=== PATIENT | female | born 1955 | race Hispanic/Latino ===

== ENCOUNTER 2023-01-22 04:58 | Observation (INO) | payer MEDICARE, OTHER ==
[2023-01-17 11:34] LABS: BASOPHILS # (AUTO) 0.07 K/uL (0.00-0.20); BASOPHILS % (AUTO) 0.6 % (0.0-5.0); EOSINOPHILS # (AUTO) 0.57 K/uL (0.00-0.70); EOSINOPHILS % (AUTO) 5.1 % (0.0-8.0); IMMATURE GRANULOCYTE ABSOLUTE 0.06 K/uL (0-1); LYMPHOCYTES # (AUTO) 3.2 K/uL (1.0-4.8); LYMPHOCYTES % (AUTO) 28.5 % (21.0-51.0); MEAN CORPUSCULAR HEMOGLOBIN 31.7 pg (27.0-33.0); MEAN CORPUSCULAR HGB CONC 33.6 g/dL (32.0-36.0); MEAN CORPUSCULAR VOLUME 94.4 fL (79-99); MONOCYTES # (AUTO) 0.8 K/uL (0.1-1.0); NEUTROPHILS # (AUTO) 6.4 K/uL (1.8-7.7); NEUTROPHILS % (AUTO) 58.3 % (40.0-77.0); PLATELET COUNT (AUTO) 330 K/uL (130-400); RED BLOOD CELL COUNT(AUTO) 4.13 MIL/uL (4.00-5.50); RED CELL DISTRIBUTION WIDTH 12.7 % (11.0-15.5); WHITE BLOOD COUNT (AUTO) 11.1 K/uL (4.8-10.8)
[2023-01-17 11:44] LABS: CREATININE 0.9 mg/dL (0.5-1.5); POTASSIUM 3.5 mmol/L (3.5-5.1)
[2023-01-17 11:47] LABS: INR 0.97 (0.85-1.15); PROTHROMBIN TIME 11.3 SEC (9.6-11.6)
[2023-01-17 11:49] LABS: PARTIAL THROMBOPLASTIN TIME 29.9 SEC (26.3-35.5)
[2023-01-17 12:01] VITALS: BP 162/85; PULSE 74; RESP 22
[~2023-01-22] VITALS: Ht 157.5 cm; Wt 90.0 kg
[2023-01-22] VITALS (32 sets, daily range): BP systolic 108–163; BP diastolic 50–80; PULSE 58–73; RESP 10–20; O2SAT 94
[~2023-01-22 04:58] MED LIST: AMLO10TA4 PO; ATOR20TA65 PO; BACL10TA PO; BIMA2.5D4 OU; CYCL30DR OU; DICY-20 PO; FURO20TA4 PO; MECL-302 PO; METF-444 PO; OMEP20CA12 PO; TRAM50TA4 PO; ZOLP10TA2 PO
[2023-01-22] MEDS: 0.9%NACL 1000ML 1,000 ML IV ONE (06:38)
[2023-01-22] MEDS ORDERED: ROSU20TA73 PO (07:03)
[2023-01-22] MEDS ORDERED: PROPOFOL 10 MG/ML 20ML VIAL IV ONE (12:14)
[2023-01-22] MEDS ORDERED: FENTANYL CITRATE PF 50 MCG/1 ML 2ML VIAL ONE (12:15)
[2023-01-22] MEDS ORDERED: LIDOCAINE PF 100MG/5ML (2%) SYRINGE 5ML ONE (12:16)
[2023-01-22] MEDS ORDERED: PROPOFOL 1000 MG/100 ML 100 ML IV ONE (12:20)
[2023-01-22] MEDS ORDERED: MIDAZOLAM HCL 1 MG/ML 2ML VIAL ONE (12:45)
[2023-01-22] MEDS: CLINDAMYCIN IVPB 900MG/50ML 50 ML IV ONE (12:50)
[2023-01-22] MEDS ORDERED: ONDANSETRON 4MG INJ ONE (12:51)
[2023-01-22] MEDS ORDERED: DEXAMETHASONE SOD PHOSPHATE 10MG/ML 1ML VIAL ONE (12:51)
[2023-01-22] MEDS: TRANEXAMIC ACID 1000MG/10ML ONE (12:53)
[2023-01-22] MEDS: GENTAMICIN SULFATE 80 MG/2 ML VIAL ONE (13:09)
[2023-01-22] MEDS: CEFAZOLIN SODIUM 1 GM VIAL ONE (13:09)
[2023-01-22] MEDS: TRANEXAMIC ACID 1000MG/10ML IV ONE (13:13)
[2023-01-22] MEDS: 0.9%NACL 48.45 ML, ROPIVACAINE 0.5% 49.25ML, EPINEPH 0.5MG KETOROLAC 30MG,CLONIDINE 80MCG IV PRN (13:32)
[2023-01-22] MEDS ORDERED: PHENYLEPHRINE HCL 10 MG/ML 1ML VIAL IV ONE (14:13)
[2023-01-22] MEDS ORDERED: DIPHENHYDRAMINE HCL 25 MG CAPSULE PO PRN ×2 (19:00)
[2023-01-22] MEDS ORDERED: MAG/ALUM/SIMETH 30 ML UDCUP PO PRN (19:00)
[2023-01-22] MEDS ORDERED: DiphenhydrAMINE HCL 50 MG/ML VIAL IM PRN (19:00)
[2023-01-22] MEDS ORDERED: DIPHENOXYLATE HCL/ATROPINE 2.5/0.025 MG TAB PO PRN (19:00)
[2023-01-22] MEDS ORDERED: LACTULOSE 20 GM/30 ML UDCUP PO PRN (19:00)
[2023-01-22] MEDS ORDERED: ONDANSETRON 4MG INJ IVP PRN (19:00)
[2023-01-22] MEDS ORDERED: ACETAMINOPHEN 325 MG TAB PO PRN ×3 (19:00)
[2023-01-22] MEDS ORDERED: BENZOCAINE/MENTH/CETYLPYRD CL 1 EACH LOZENGE MM PRN (19:00)
[2023-01-22] MEDS ORDERED: MECLIZINE HCL 25 MG TABLET PO PRN (19:00)
[2023-01-22] MEDS: CLINDAMYCIN IVPB 900MG/50ML IV SCH (20:50)
[2023-01-22] MEDS: ATORVASTATIN 20 MG TABLET PO SCH (20:50)
[2023-01-22] MEDS: METFORMIN HCL 500 MG TABLET PO SCH (20:50)
[2023-01-22] MEDS: 0.9%NACL 1000ML 1,000 ML IV SCH (20:54)
[2023-01-22] MEDS ORDERED: NON-FORMULARY MEDICATION 1 EACH (Dicyclomine HCl 10 MG) PO SCH (21:00)
[2023-01-22] MEDS: ZOLPIDEM TARTRATE 10 MG PO SCH (21:00)
[2023-01-22] MEDS: (Cyclosporine (Restasis) 1 DROP) OU SCH (21:00)
[2023-01-22] MEDS ORDERED: TRAMADOL HCL 50 MG TABLET PO SCH (21:00)
[2023-01-22] MEDS: (Bimatoprost (Lumigan) 1 DROP) OU SCH (21:00)
[2023-01-22] MEDS: HYDROMORPHONE PCA 10 MG/50 ML 50 ML IV PRN (21:34)
[2023-01-22] MEDS: INSULIN HUMULIN R 100 UNIT/ML 3ML SQ SCH (22:15)
[2023-01-23] MEDS: TRAMADOL HCL 50 MG TABLET PO PRN (03:35)
[2023-01-23 03:50] LABS: POTASSIUM 3.9 mmol/L (3.5-5.1)
[2023-01-23 03:58] LABS: HEMATOCRIT 32.7 % (36-48); MEAN CORPUSCULAR HEMOGLOBIN 31.3 pg (27.0-33.0); MEAN CORPUSCULAR VOLUME 94.8 fL (79-99); RED BLOOD CELL COUNT(AUTO) 3.45 MIL/uL (4.00-5.50); RED CELL DISTRIBUTION WIDTH 12.6 % (11.0-15.5); WHITE BLOOD COUNT (AUTO) 13.9 K/uL (4.8-10.8)
[2023-01-23 04:13] VITALS: BP 107/71; PULSE 61; RESP 18
[2023-01-23 04:17] LABS: HEMOGLOBIN A1C 7.4 % (4.0-6.0)
[2023-01-23] MEDS: ACETAMINOPHEN 1,000 MG/100 ML VIAL IV ONE (07:57)
[2023-01-23 08:00] VITALS: BP 140/74; PULSE 73; RESP 18
[2023-01-23 08:30] VITALS: O2SAT 96
[2023-01-23] MEDS ORDERED: NON-FORMULARY MEDICATION 1 EACH (Omeprazole 20 MG) PO SCH (09:00)
[2023-01-23] MEDS: PANTOPRAZOLE 40 MG TAB DR PO SCH (09:00)
[2023-01-23] MEDS: RIVAROXABAN 10 MG TABLET PO SCH (09:00)
[2023-01-23] MEDS: AMLODIPINE 5 MG TAB PO SCH (09:00)
[2023-01-23] MEDS: FUROSEMIDE 20 MG TABLET PO SCH (09:00)
[2023-01-23] MEDS ORDERED: NON-FORMULARY MEDICATION 1 EACH (Amlodipine Besylate (Norvasc) 10 MG) PO SCH (09:00)
[2023-01-23 12:00] VITALS: BP 125/72; PULSE 70; RESP 18
[2023-01-23 16:00] VITALS: BP 128/76; PULSE 68; RESP 20
== END 2023-01-23 16:56 | disposition home health service (06) ==
LOC: DAH 04:58 → DAHIP 04:59 → EDSTATUS 10:08 → 4AH 17:45
PROVIDERS: ADMIT Orthopaedic Surgery; ATTEND Orthopaedic Surgery
DX: M17.11 Unilateral primary osteoarthritis, right knee (principal); I10 Essential (primary) hypertension; E11.42 Type 2 diabetes mellitus with diabetic polyneuropathy; E11.51 Type 2 diabetes mellitus with diabetic peripheral angiopathy without gangrene; E78.5 Hyperlipidemia, unspecified; E07.9 Disorder of thyroid, unspecified; M10.061 Idiopathic gout, right knee; M06.861 Other specified rheumatoid arthritis, right knee; K21.9 Gastro-esophageal reflux disease without esophagitis; I73.9 Peripheral vascular disease, unspecified; E66.01 Morbid (severe) obesity due to excess calories; M06.9 Rheumatoid arthritis, unspecified; F17.210 Nicotine dependence, cigarettes, uncomplicated; Z88.0 Allergy status to penicillin; Z86.73 Personal history of transient ischemic attack (TIA), and cerebral infarction without residual deficits; Z90.49 Acquired absence of other specified parts of digestive tract; Z88.1 Allergy status to other antibiotic agents; Z79.01 Long term (current) use of anticoagulants; Z79.82 Long term (current) use of aspirin; Z79.84 Long term (current) use of oral hypoglycemic drugs; Z68.36 Body mass index [BMI] 36.0-36.9, adult; Z88.5 Allergy status to narcotic agent
CPT/HCPCS: 80048 ×2; 85025; 85610; 85730; 36415 ×2; 93005; 87641; 27447; 96365; 96366; 96368; 82948 ×6; 97161; 97012; 97116 ×2; 97530 ×5; 83036; 85027; A6260; J1815; G0378 ×20; A4510; A4663; J7030 ×3; J7120; A4215 ×2; A4649 ×4; J3010; J0690; J3490 ×4; J1170; J1100; J0171; J2001; J1580; J2250; J2704 ×2; J2405; J1885; J2795; J2371; J0735; A6223; C1763 ×2; C1776; A5120; A4223; A4222; A4221; A6450